=== PATIENT | female | born 1930 | race Caucasian/White ===

== ENCOUNTER 2021-01-07 18:35 | Emergency (ER) | payer MEDICARE, BC ==
[~2021-01-07] VITALS: Ht 165.1 cm; Wt 86.4 kg
[2021-01-07] MEDS ORDERED: MAALOX 30 ML SUSP *UDC PO ONE (19:35)
[2021-01-07 20:04] LABS: BASO % 0.6 % (0.0-1.0); EOS # 0.1 10^3/uL (0.0-0.5); EOS % 1.2 % (0.0-3.0); HEMATOCRIT 36.5 % (36.0-47.0); HEMOGLOBIN 11.7 g/dl (12.0-15.5); LYMPH # 1.3 10^3/uL (1.5-5.0); LYMPH % 20.7 % (24.0-44.0); MEAN CORPUSCULAR HEMOGLOBIN 32.1 pg (27.0-33.0); MEAN CORPUSCULAR HGB CONC 32.1 g/dl (32.0-36.5); MONO # 0.6 10^3/uL (0.0-0.8); MONO % 9.7 % (2.0-8.0); NEUTROPHILS # 4.3 10^3/uL (1.5-8.5); NEUTROPHILS % 66.9 % (36.0-66.0); PLATELET COUNT, AUTOMATED 304 10^3/uL (150-450); RED BLOOD COUNT 3.65 10^6/uL (4.00-5.40); WHITE BLOOD COUNT 6.4 10^3/uL (4.0-10.0)
[2021-01-07] MEDS ORDERED: ISOVUE-370 76% 100ML VIAL As Ordered ONE (20:16)
--- NOTE | 2021-01-07 20:32 | ECGEPIP ---
[facility] - ED Test Date: 2021-01-07 Pat Name: EDMOND GONZALEZ Department: Room: - Gender: Female Salon Assistant: Shaan BLACKWELL : 1930 Requested By: EVA Singletary Order Number: [id number] Reading MD: Jimmy Howard Measurements Intervals [place] Rate: 73 P: 57 NH: 200 QRS: -19 QRSD: 74 T: 38 QT: 364 QTc: 401 Interpretive Statements Normal sinus rhythm NO PRIORS FOR COMPARISON Electronically Signed on 01-07-2021 20:31:38 EDT by Jimmy Howard
[2021-01-07 20:42] LABS: ALBUMIN 3.7 GM/DL (3.2-5.2); ALT/SGPT 18 U/L (12-78); BILIRUBIN,DIRECT < 0.1 MG/DL (0.0-0.2); BILIRUBIN,TOTAL 0.3 MG/DL (0.2-1.0); CK-MB VALUE MASS 2.4 NG/ML (<3.6); CPK CREATINE PHOSPHOKINASE 107 U/L (26-192); LIPASE 148 U/L (73-393); MB/CK RELATIVE INDEX 2.24 (< OR =4); TOTAL PROTEIN 7.3 GM/DL (6.4-8.2); TROPONIN I < 0.02 NG/ML (< 0.10)
--- NOTE | 2021-01-07 20:50 | REPVR ---
PROCEDURE INFORMATION: Exam: CT Abdomen And Pelvis With Contrast Exam date and time: 01/07/2021 8:20 PM Age: 89 years old Clinical indication: Abdominal pain; Generalized; Additional info: Generalized abd pain TECHNIQUE: Imaging protocol: Computed tomography of the abdomen and pelvis with contrast. Radiation optimization: All CT scans at this facility use at least one of these dose optimization techniques: automated exposure control; mA and/or kV adjustment per patient size (includes targeted exams where dose is matched to clinical indication); or iterative reconstruction. Contrast material: ISOVUE 370; Contrast volume: 100 ml; Contrast route: INTRAVENOUS (IV); COMPARISON: No relevant prior studies available. FINDINGS: Lungs: Atelectasis is present at the lung bases. Liver: Liver appears normal with no focal abnormality. Gallbladder and bile ducts: Gallbladder is present and shows no evidence of gallstone. Pancreas: Pancreas appears normal. No focal mass or peripancreatic inflammation. Spleen: Spleen appears homogeneous without focal mass. Adrenal glands: Adrenal glands are normal in appearance. Kidneys and ureters: Left kidney is atrophic and contains nonobstructing stones and cysts. Right kidney demonstrates simple fluid density cysts measuring up to 15 mm. Stomach and bowel: No evidence of small bowel obstruction. Diverticular changes are present within the colon without inflammation. Appendix: Normal caliber appendix is identified, with no adjacent inflammation. Intraperitoneal space: No pneumoperitoneum. Vasculature: Infrarenal IVC filter is present. Main portal and splenic veins enhance normally. Atherosclerotic change present in the aorta, without aneurysm. Lymph nodes: No enlarged lymph nodes. Urinary bladder: Urinary bladder appears normal. Reproductive: Uterus is surgically absent. Bones/joints: Extensive postsurgical changes in the lower lumbar spine and sacroiliac joints. Underlying skeletal demineralization. Soft tissues: Unremarkable. IMPRESSION: 1. Colonic diverticulosis, extensive, without evidence of active diverticulitis. 2. No other acute process of concern. 3. Incidental findings in the kidneys consistent with benign cysts which do not require specific follow-up. 4. Atrophic left kidney with nonobstructive calculi COMMENTS: 1. Consistent with the [employer]'s Incidental Findings Committee white paper (J Am Ann Radiol 2018): Any incidental renal lesion less than 1 cm or classified as too small to characterize, or any incidental cystic renal lesion characterized as simple-appearing, is likely benign. No follow-up imaging is recommended for these lesions per consensus recommendations based on imaging criteria. 2. For patients with an IVC filter, recommend assessment for a management plan for the patient's IVC filter. If there is no established management plan, recommend referral to an interventional clinician on a nonemergent basis for evaluation. Electronically signed by: Christo Stratton On 01/07/2021 20:50:38 PM
[2021-01-07] MEDS ORDERED: MAGNESIUM CITRATE 300 ML BTL PO ONE (21:30)
[2021-01-07 21:31] VITALS: BP 157/70
[2021-01-07] MEDS ORDERED: TRAZ-252 (21:36)
[2021-01-07] MEDS ORDERED: ROSU10TA6 (21:36)
[2021-01-07] MEDS ORDERED: DULO1CAP6 (21:36)
[2021-01-07] MEDS ORDERED: OMEP-218 (21:36)
[2021-01-07] MEDS ORDERED: MAGN400T2 (21:36)
[2021-01-07] MEDS ORDERED: LISI20TA33 (21:36)
== END 2021-01-07 22:07 | disposition home or self-care (01) ==
LOC: M ED 18:35 → EDBD 18:35 → M ED 22:07
DX: K59.00 Constipation, unspecified (principal); I10 Essential (primary) hypertension; E78.5 Hyperlipidemia, unspecified; K21.9 Gastro-esophageal reflux disease without esophagitis; K57.30 Diverticulosis of large intestine without perforation or abscess without bleeding; N20.0 Calculus of kidney
CPT/HCPCS: 74177; 80047; 80076; 82550; 82553; 83690; 84484; 85025; 93005; 93041; 99285; Q9967

== ENCOUNTER → 2021-05-31 | Outpatient (CLI) | payer MEDICARE, BC ==
[~2021-05-31] MED LIST: DULO1CAP6; LISI20TA33; MAGN400T2; OMEP-218; ROSU10TA6; TRAZ-252
--- NOTE | 2021-05-31 14:14 | REP ---
INDICATION: PAIN COMPARISON: None TECHNIQUE: Four views excluding sunrise view FINDINGS: Calcifications are seen in both medial and lateral compartments. The compartments are symmetric and relatively well maintained. There is no acute fracture, dislocation, or subluxation. IMPRESSION: Bicompartmental meniscal calcifications likely secondary to either chronic meniscal degenerative change or calcium pyrophosphate deposition disorder. <Electronically signed by Gilberto Rodriguez > 05/31/21 [id number]
--- NOTE | 2021-05-31 14:38 | REP ---
INDICATION: PAIN. COMPARISON: None. TECHNIQUE: AP and lateral FINDINGS: The technique utilized in obtaining the radiograph has magnified the cardiac silhouette and attenuated the interstitial markings. The superior mediastinal structures are midline. The cardiac silhouette is accentuated by technique. Mild cardiomegaly cannot be excluded.. The diaphragmatic surfaces of the lungs are regular, and the costophrenic angles are clear. The pulmonary yu are clear. The imaged osseous structures are intact. Note is made of multilevel bilateral thoracic vertebral body transpedicular screw placement. IMPRESSION: No evidence of acute cardiopulmonary disease. Findings and limitations as described above. <Electronically signed by Gilberto Rodriguez > 05/31/21 [id number]
[2021-06-01 13:58] LABS: PERCENT SATURATION 28.8 % (13.2-45.0)
== END ==
LOC: M PLAIMG 13:18
PROVIDERS: ATTEND Internal Medicine
DX: R00.2 Palpitations (principal); M25.561 Pain in right knee; D64.9 Anemia, unspecified; M25.861 Other specified joint disorders, right knee